=== PATIENT | female | born 1955 | race Caucasian/White ===

== ENCOUNTER 2017-12-02 06:42 | Day surgery (SDC) | payer MEDICARE ==
[2017-11-29 13:04] VITALS: BMI 24.4
--- NOTE | 2017-12-02 08:03 | HP ---
Admitting History and Physical - Admission History of Present Illness: Patient is 62 y/o female with a past medical history of depression, anxiety, fibromyalgia, asthma, and lung CA. Patient presents for ect, this will be her first ECT. Patient reports compliance with prescribed medications. She reports her current medication regimen has been infective and she reports ongoing feelings of depression. patient denies any suicidal or homicidal ideation. History Source: Patient Limitations to Obtaining History: No Limitations - Past Surgical History Additional Past Surgical History: left lower lobe lobectomy - Smoking History Smoking history: Former smoker Have you smoked in the past 12 months: No If you are a former smoker, when did you quit?: MANY YRS AGO - Alcohol/Substance Use Hx Alcohol Use: Yes (VERY RARE) - Social History Usual Living Arrangement: Yes: With Spouse ADL: Independent Occupation: psychriatric RN History of Recent Travel: No Home Medications - Allergies Allergies/Adverse Reactions: Allergies Allergy/AdvReac Type Severity Reaction Status Date / Time Penicillins Allergy Severe Swelling Verified 12/02/17 07:38 Tetanus Vaccines and Toxoid Allergy Severe Swelling Verified 12/02/17 07:38 - Home Medications Home Medications: Ambulatory Orders Albuterol Sulfate Inhaler - [Ventolin Hfa Inhaler -] 1 - 2 inh PO QID PRN Alprazolam [Xanax] 0.5 mg PO TID PRN 11/29/17 Cyclobenzaprine HCl [Flexeril -] 10 mg PO TID 11/29/17 Cyclosporine [Restasis] 1 each OU BID 11/29/17 Diazepam [Valium] 10 mg PO TID 11/29/17 Dicyclomine HCl [Bentyl -] 10 mg PO DAILY 11/29/17 Fluticasone/Salmeterol [Advair 250-50 Diskus] 1 each IH DAILY 11/29/17 Guaifenesin [Guaifenesin ER] 1,200 mg PO BID 11/29/17 HYDROmorphone [Dilaudid -] 4 mg PO Q8H 11/29/17 Levomefolate/Algal Oil [Deplin-Algal Oil 15 mg Capsule] 1 each PO DAILY Levothyroxine [Synthroid -] 75 mcg PO DAILY 11/29/17 Liothyronine Sodium [Cytomel] 5 mcg PO BID 11/29/17 Liraglutide [Victoza -] 1.8 mg SQ DAILY@0700 11/29/17 Lorazepam [Ativan] 1 mg PO TID PRN 11/29/17 Meloxicam [Mobic] 15 mg PO DAILY PRN 11/29/17 Metformin HCl [Metformin HCl ER] 1,000 mg PO BID 11/29/17 Naloxegol Oxalate [Movantik] 12.5 mg PO DAILY 11/29/17 Omeprazole 20 mg PO DAILY 11/29/17 Family Disease History - Family Disease History Family History: Denies Review of Systems - Review of Systems Constitutional: reports: No Symptoms Eyes: reports: No Symptoms HENT: reports: No Symptoms Neck: reports: No Symptoms Cardiovascular: reports: No Symptoms Respiratory: reports: No Symptoms Gastrointestinal: reports: No Symptoms Genitourinary: reports: No Symptoms Musculoskeletal: reports: No Symptoms Integumentary: reports: No Symptoms Neurological: reports: No Symptoms Endocrine: reports: No Symptoms Hematology/Lymphatic: reports: No Symptoms Psychiatric: reports: Depression Physical Examination Vital Signs: Vital Signs Temperature 98.2 F 12/02/17 07:34 Pulse Rate 89 12/02/17 07:34 Respiratory Rate 18 12/02/17 07:34 Blood Pressure 108/76 12/02/17 07:34 O2 Sat by Pulse Oximetry (%) 95 12/02/17 07:34 Constitutional: Yes: Well Nourished, No Distress, Calm Eyes: Yes: WNL, Conjunctiva Clear, EOM Intact HENT: Yes: WNL, Atraumatic, Normocephalic Neck: Yes: WNL, Supple, Trachea Midline Cardiovascular: Yes: WNL, Regular Rate and Rhythm, S1, S2 Respiratory: Yes: WNL, Regular, CTA Bilaterally, Other (left lower lobe diminished) Gastrointestinal: Yes: WNL, Normal Bowel Sounds, Soft ...Rectal Exam: Yes: Deferred Renal/: Yes: WNL Musculoskeletal: Yes: WNL Extremities: Yes: WNL Edema: No Imaging - Results EKG: Image Reviewed, Other (nsr) Assessment/Plan patient is a 62 y/o female that presents for ect, labs and ekg reviewed patient is medically optimized for procedure informed consent, risks/benefits to be obtained by Dr Huntley
[2017-12-02] MEDS ORDERED: KETAMINE HCL 500 MG/10 ML VIAL ONE (08:31)
[2017-12-02] MEDS ORDERED: ACETAMINOPHEN 325 MG TABLET (FP) PO PRN (09:30)
[2017-12-02 09:51] VITALS: TEMP 98.6
[2017-12-02] MEDS ORDERED: IBUPROFEN 600 MG TABLET (FP) PO ONE (09:54)
[2017-12-02 11:33] VITALS: PULSE 80
[2017-12-02 13:04] VITALS: BP 111/60
== END 2017-12-02 12:00 | disposition home or self-care (01) ==
LOC: FECT 06:42
PROVIDERS: ATTEND Psychiatry & Neurology Psychiatry
PROC: GZB4ZZZ Other Electroconvulsive Therapy (ICD-10-PCS; principal; 2017-12-02 07:45)
DX: F33.2 Major depressive disorder, recurrent severe without psychotic features (principal)
CPT/HCPCS: 82962; 90870; 94760

== ENCOUNTER 2017-12-04 05:52 | Day surgery (SDC) | payer MEDICARE ==
[2017-12-03 13:18] VITALS: BMI 24.4
[2017-12-04] MEDS ORDERED: KETAMINE HCL 500 MG/10 ML VIAL ONE (08:51)
[2017-12-04] MEDS ORDERED: ONDANSETRON 4 MG/2 ML VIAL IVPUSH ONE (09:20)
[2017-12-04] MEDS ORDERED: ONDANSETRON 4 MG/2 ML VIAL ONE (09:29)
[2017-12-04] MEDS ORDERED: ONDANSETRON 4 MG/2 ML VIAL IVPUSH PRN (09:41)
[2017-12-04 11:31] VITALS: TEMP 98.2
[2017-12-04 11:35] VITALS: BP 133/65; PULSE 81
== END 2017-12-04 11:00 | disposition home or self-care (01) ==
LOC: FECT 05:52
PROVIDERS: ATTEND Psychiatry & Neurology Psychiatry
PROC: GZB4ZZZ Other Electroconvulsive Therapy (ICD-10-PCS; principal; 2017-12-04 07:30)
DX: F33.2 Major depressive disorder, recurrent severe without psychotic features (principal)
CPT/HCPCS: 82962; 90870; 94760

== ENCOUNTER 2017-12-12 05:51 | Day surgery (SDC) | payer MEDICARE ==
[2017-12-10 16:36] VITALS: BMI 24.4
[2017-12-12 06:40] VITALS: TEMP 98.2
[2017-12-12] MEDS ORDERED: KETAMINE HCL 500 MG/10 ML VIAL ONE (07:38)
[2017-12-12] MEDS ORDERED: PROMETHAZINE HCL 25 MG/1 ML VIAL ONE (08:15)
[2017-12-12 09:04] VITALS: BP 142/82; PULSE 86
[2017-12-12] MEDS ORDERED: ACETAMINOPHEN 325 MG TABLET (FP) PO PRN (09:23)
[2017-12-12] MEDS ORDERED: PROMETHAZINE HCL 25 MG/1 ML VIAL IVPUSH PRN (09:23)
== END 2017-12-12 09:30 | disposition home or self-care (01) ==
LOC: FECT 05:51
PROVIDERS: ATTEND Psychiatry & Neurology Psychiatry
PROC: GZB4ZZZ Other Electroconvulsive Therapy (ICD-10-PCS; principal; 2017-12-12 08:15)
DX: F33.2 Major depressive disorder, recurrent severe without psychotic features (principal)
CPT/HCPCS: 82962; 90870; 94760

== ENCOUNTER 2017-12-19 05:39 | Day surgery (SDC) | payer MEDICARE ==
[2017-12-12 14:12] VITALS: BMI 24.4
[2017-12-19] MEDS ORDERED: ONDANSETRON 4 MG/2 ML VIAL IVPUSH PRN (07:02)
[2017-12-19 07:04] VITALS: TEMP 98.5
[2017-12-19] MEDS ORDERED: PROMETHAZINE HCL 25 MG/1 ML VIAL ONE (07:24)
[2017-12-19] MEDS ORDERED: KETOROLAC TROMETHAMINE 30 MG/1 ML VIAL ONE (07:24)
[2017-12-19] MEDS ORDERED: KETAMINE HCL 500 MG/10 ML VIAL ONE (07:24)
[2017-12-19 10:22] VITALS: BP 131/84
[2017-12-19 10:27] VITALS: PULSE 87
== END 2017-12-19 09:00 | disposition home or self-care (01) ==
LOC: FECT 05:39
PROVIDERS: ATTEND Psychiatry & Neurology Psychiatry
PROC: GZB4ZZZ Other Electroconvulsive Therapy (ICD-10-PCS; principal; 2017-12-19 08:15)
DX: F33.2 Major depressive disorder, recurrent severe without psychotic features (principal)
CPT/HCPCS: 82962; 90870; 94760